=== PATIENT | female | born 1980 | race Caucasian/White ===

== ENCOUNTER → 2024-05-17 | Outpatient (CLI) | payer OTHER, SELFPAY ==
[2024-05-17 16:51] LABS: Hematocrit 43.2 % (37-47); Mean Corp Hgb Conc 32.4 g/dL (32-36); Mean Corpuscular Volume 89.6 fL (81-99); Mean Platelet Vol. 10.9 fl (6.2-12.0); Platelet Count 202 K/mm3 (150-450); RBC Distribution Width CV 12.6 % (11.6-14.6); Red Blood Count 4.82 M/mm3 (4.2-5.4); White Blood Count 8.5 K/mm3 (4.4-11.0)
[2024-05-17 17:19] LABS: Anion Gap 7 (5-15); BUN 11 mg/dL (7-18); BUN/Creat Ratio 11.1 RATIO (10-20); Calcium,Total 10.1 mg/dL (8.5-10.1); Chloride 104 mmol/L (98-107); EST Glomerular Filtration Rate 65 mL/min (>60); Est Glom Filt Rate - Afr Amer 79 mL/min (>60); Glucose 90 mg/dL (74-106); Potassium 4.3 mmol/L (3.5-5.1); Sodium Level 140 mmol/L (136-145)
== END | disposition home or self-care (01) ==
PROVIDERS: Referring Provider Plastic Surgery; Visit Provider Plastic Surgery
DX: N62 Hypertrophy of breast (principal); N64.81 Ptosis of breast
CPT/HCPCS: 36415; 80048; 85027

== ENCOUNTER 2024-06-17 05:50 | Day surgery (SDC) | payer OTHER, SELFPAY ==
[2024-06-17] VITALS (10 sets, daily range): BP systolic 105–126; BP diastolic 59–82; PULSE 62–72; RESP 16–18; TEMP 36.3–37.5; O2SAT 96–100; BMI 25.2
[2024-06-17] MEDS: Lactated Ringers 1,000 ML 15 ML IV ×2 (06:32→12:39)
[2024-06-17 06:38] LABS: Internal QC Validated? YES +Cl - CLEAR BKGD
[2024-06-17 06:39] LABS: Pregnancy, Urine Negative Negative; Record Kit Lot#,Urine Preg 869294
[2024-06-17] MEDS: Cefazolin 2 GM in Syringe IV (07:50)
[2024-06-17] MEDS: EPINEPHrine Nasal 0.1% 30 ML Bottle OPERA.SITE (08:06)
[2024-06-17] MEDS: Gentamicin 80 MG/2 ML Vial (08:06)
[2024-06-17] MEDS: Methylene Blue 1% 100 MG/10 ML VIAL (08:06)
[2024-06-17] MEDS: Bupivacaine 0.25% 30 ML Vial (12:13)
[2024-06-17] MEDS: Acetaminophen 325 MG Tablet PO (13:36)
[2024-06-17] MEDS: oxyCODONE 5 MG Tablet PO (13:36)
== END 2024-06-17 16:41 | disposition home or self-care (01) ==
LOC: SDC 05:58 → AC 06:11
PROVIDERS: Anesthesiology; PCP Family Medicine; Referring Provider Plastic Surgery; Visit Provider Plastic Surgery
PROC: 0H0U0ZZ Alteration of Left Breast, Open Approach (ICD-10-PCS; CPT 19318; principal; 2024-06-17 07:15)
DX: N62 Hypertrophy of breast (principal); M54.9 Dorsalgia, unspecified; G89.29 Other chronic pain; N64.81 Ptosis of breast
CPT/HCPCS: 19318; 00402; 81025; 88305; J7120; J2405